=== PATIENT | male | born 1970 | race Caucasian/White ===

== ENCOUNTER → 2021-08-25 | Outpatient (CLI) | payer OTHER | LOC: LABNPT 12:36 | PROVIDERS: ATTEND Family Medicine | DX: U07.1 COVID-19 (principal) | CPT/HCPCS: 87635 ==

== ENCOUNTER 2022-07-02 05:40 | Outpatient (CLI) | payer OTHER ==
[~2022-07-02] VITALS: Ht 190.5 cm; Wt 109.3 kg
== END 2022-07-03 13:05 ==
LOC: PREOP 05:40
PROVIDERS: ATTEND Surgery
DX: Z01.818 Encounter for other preprocedural examination (principal)

== ENCOUNTER 2022-07-10 07:08 | Day surgery (SDC) | payer OTHER ==
[~2022-07-10] VITALS: Ht 190.5 cm; Wt 109.3 kg
[2022-07-10] MEDS ORDERED: LACTATED RINGERS 1,000 ML IV STA (07:11)
[2022-07-10 07:25] VITALS: BP 129/97
[2022-07-10] MEDS ORDERED: PROPOFOL INJECTION 50 ML IV ONE (08:10)
[2022-07-10] MEDS ORDERED: MIDAZOLAM 2 MG/2 ML (VERSED) VIAL ONE (08:10)
--- NOTE | 2022-07-10 08:28 | Discharge Inst-Simple/Standard ---
Discharge Inst-Standard Patient Instructions/Follow Up Plan of Care/Instructions/FU: Schedule appointment in 10 years Activity as Tolerated: Yes Discharge Diet: No Restrictions, Regular Diet CHRISTINE BROWNING DO Jul 10, 2022 08:28
[2022-07-10 08:30] VITALS: BP 114/75
[2022-07-10 08:35] VITALS: BP 107/69
[2022-07-10 08:40] VITALS: BP 95/77
[2022-07-10 08:48] VITALS: BP 95/77
--- NOTE | 2022-07-10 13:39 | Anesthesia-General Post-Op ---
MAC Patient Condition Mental Status/LOC: Same as Preop Cardiovascular: Satisfactory Nausea/Vomiting: Absent Respiratory: Satisfactory Pain: Controlled Complications: Absent Post Op Complications Complications None Follow Up Care/Instructions Patient Instructions None needed. Anesthesiology Discharge Order Discharge Order Patient is doing well, no complaints, stable vital signs, no apparent adverse anesthesia problems. No complications reported per nursing. HARLEEN PATEL CRNA Jul 10, 2022 13:38
--- NOTE | 2022-07-10 16:16 | OPERATIVE REPORT ---
DATE OF SERVICE: 07/10/2022 PREOPERATIVE DIAGNOSIS: Screening colonoscopy. POSTOPERATIVE DIAGNOSIS: Normal colon. PROCEDURE PERFORMED: Colonoscopy. SURGEON: Christine Forman DO. ANESTHESIA: Per TECHNICAL PUBLICATIONS MANAGER. ESTIMATED BLOOD LOSS: None. COMPLICATIONS: None. INDICATIONS FOR PROCEDURE: The patient is a 52-year-old male, needing screening colonoscopy. He understands the risks and benefits of the procedure and wished to proceed. Consent was signed in the chart. DESCRIPTION OF PROCEDURE: The patient was taken to the endoscopy suite and placed in the left lateral position. A timeout was performed. Digital rectal exam was performed. No palpable polyps, masses or ulcerations. Scope was inserted into the rectum and advanced all the way to the cecum with minimal difficulty. Prep was adequate. Scope was slowly retracted back. No polyps, masses or ulcerations in the cecum, ascending, transverse, descending and sigmoid colon. Once in the rectum, scope was retroflexed, noting no other pathology. Scope was returned to its normal position and slowly were completely removed, noting no other pathology. The patient tolerated the procedure well without any complications and taken to the recovery room in stable condition. RECOMMENDATIONS: The patient will need repeat colonoscopy in 10 years. Any issues before that be seen at that time. Job ID: [id number] DocumentID: [id number] Dictated Date: 07/10/2022 08:31:19 Master Technician Date: 07/10/2022 16:13:00 Dictated By: CHRISTINE FORMAN DO
== END 2022-07-10 08:55 | disposition home or self-care (01) ==
LOC: ENDO 07:08
PROVIDERS: ATTEND Surgery
DX: Z12.11 Encounter for screening for malignant neoplasm of colon (principal); Z28.310 Unvaccinated for COVID-19

== ENCOUNTER → 2022-10-26 | Outpatient (CLI) | payer OTHER ==
--- NOTE | 2022-10-26 15:33 | Diagnostic Imaging Report ---
INDICATION: Left leg pain after injury. AP and lateral views of the left leg are obtained. Mild degenerative spurring is noted at the patellofemoral joint. There is cortical irregularity and osseous fragment along the medial aspect of the distal medial femoral condyle likely related to old injury. No acute fracture or malalignment is seen and there is no lytic or sclerotic lesion. IMPRESSION: Probable old medial collateral ligamentous injury at the knee with associated mild osteoarthritis. No acute abnormality is appreciated. Dictated by: Dictated on workstation # [id number]
== END ==
LOC: RAD 14:56
PROVIDERS: ATTEND Nurse Practitioner Family
DX: M79.662 Pain in left lower leg (principal)
CPT/HCPCS: 73590